=== PATIENT | female | born 1985 | race Caucasian/White ===

== ENCOUNTER 2016-10-26 17:03 | Outpatient (CLI) | payer OTHER | END 2016-10-26 17:55 | disposition home or self-care (01) | LOC: FBC 17:03 → FBCOUT 17:03 | PROVIDERS: ATTEND Family Medicine | DX: O26.899 Other specified pregnancy related conditions, unspecified trimester (principal); R11.0 Nausea; R42 Dizziness and giddiness; Z3A.00 Weeks of gestation of pregnancy not specified ==

== ENCOUNTER 2016-10-31 20:40 | Inpatient (IN) | payer OTHER ==
[2016-10-31 21:06] VITALS: BMI 30.9
[2016-10-31] MEDS ORDERED: OXYTOCIN IN LR 500 ML IV ONE (23:06)
[2016-10-31] MEDS ORDERED: OXYTOCIN 10 UNITS/ML VIAL ONE (23:08)
[2016-10-31] MEDS ORDERED: LIDOCAINE Viscous 2% 15 ML UDCUP ONE (23:08)
[2016-10-31] MEDS ORDERED: LIDOCAINE 1% (PRES FREE) 30 ML VIAL ONE (23:08)
[2016-10-31] MEDS ORDERED: PUMP TUBING ONE (23:08)
[2016-10-31] MEDS ORDERED: MINERAL OIL 25 ML BOT ONE (23:08)
[2016-10-31] MEDS ORDERED: IV START KIT ONE (23:09)
[2016-10-31] MEDS ORDERED: FENTANYL/ROPIVACAINE EPIDURAL 250 ML EP ONE (23:36)
[2016-10-31] MEDS ORDERED: EPIDURAL PUMP SET ONE (23:36)
[2016-10-31] MEDS: LACTATED RINGERS 1,000 ML IV PRN (23:38)
[2016-10-31 23:48] LABS: HEMATOCRIT 41.6 % (37.0-47.0); HEMOGLOBIN 13.9 gm/l (12.0-16.0); MEAN CELL VOLUME 90.6 fl (81.0-99.0); MEAN CORPUSCULAR HEMOGLOBIN 30.3 pg (27.0-31.0); MEAN CORPUSCULAR HGB CONC 33.4 g/dl (33.0-37.0); RED CELL DISTRIBUTION WIDTH 14.9 % (11.5-14.5)
[2016-11-01] MEDS ORDERED: EPIDURAL PROCEDURE TRAY ONE (00:10)
[2016-11-01] MEDS: LACTATED RINGERS 1,000 ML IV PRN (01:30)
[2016-11-01] MEDS ORDERED: FLU VACC 2016-17 (36MO-64Y)/PF 60 MCG/0.5 ML SYRINGE IM V ONE (02:20)
[2016-11-01] MEDS ORDERED: CALCIUM CARBONATE 500 MG TAB.CHEW PO PRN (02:21)
[2016-11-01] MEDS ORDERED: MAGNESIUM HYDROXIDE 30 ML UDCUP PO PRN (02:21)
[2016-11-01] MEDS ORDERED: ACETAMINOPHEN 325 MG TABLET PO PRN (02:21)
[2016-11-01] MEDS ORDERED: LANOLIN 50 APPLIC/7G TUBE TP PRN (02:21)
[2016-11-01] MEDS ORDERED: BENZOCAINE/MENTHOL 60 APPLIC/BOT TP PRN (02:21)
[2016-11-01] MEDS ORDERED: DOCUSATE SODIUM 100 MG CAPSULE PO PRN (02:21)
--- NOTE | 2016-11-01 02:35 | PCMDEL ---
Delivery Note - Labor 1st stage (hr/min):: 2h58m 2nd stage (hr/min):: 0h5m 3rd stage (hr/min):: 0h10m Total (hr/min):: 3h13m Pushed (hr/min):: 0h1m - Delivery Delivery (Date): 11/01/16 Delivery (Time): 01:34 Infant Gender: Male Presentation: Cephalic Position: OA Umbilical Cord: 3 Vessel Delayed Cord Clamping:: > 3 min 1 Minute Total: 9 5 Minute Total: 10 Placenta:: spontaneous, betancourt, intact, 3vc EBL:: 400ml Perineum:: Intact Anesthesia/Meds:: epidural Length ROM:: 5min Comments:: I was called to the room for stand-by, as patient was 9.5cm and had a hx of fast labors. Within in approx 15min, Martha SROM'd for clear fluid and pushed once to achieve of vigorous male over intact perineum. OA to STEPHANIE. placed skin to skin for bonding & drying. Apgars 9/10. AMTSL initiated. Cord clamped at >3min following cessation of pulse and cut by Martha's oldest son. Cord blood collected. Delivery of intact placenta, betancourt presentation, with 3vc. Fundus firm, midline, u/-1. Moderate void with fundal pressure. Perineum found to be intact, no sutures required. Hemostasis achieved. EBL 400ml. Mom and baby stable with baby to breast within 30min. Inez Gomez CNM.
[2016-11-01] MEDS ORDERED: DIPHENHYDRAMINE HCL 50 MG/1 ML VIAL IV PRN (03:00)
[2016-11-01] MEDS ORDERED: LACTATED RINGERS 1,000 ML IV SCH (03:00)
[2016-11-01] MEDS ORDERED: METOCLOPRAMIDE HCL 5 MG/ML 2ML VIAL IV PRN (03:00)
[2016-11-01] MEDS ORDERED: NALOXONE HCL 0.4 MG/ML VIAL IV PRN (03:00)
[2016-11-01] MEDS ORDERED: EPHEDRINE SULFATE 50 MG/ML 1ML VIAL IV PRN (03:00)
[2016-11-01] MEDS ORDERED: ONDANSETRON 4 MG/2ML 2 ML VIAL IV PRN (03:00)
[2016-11-01] MEDS ORDERED: FENTANYL/ROPIVACAINE EPIDURAL 250 ML EP SCH (03:00)
[2016-11-01] MEDS ORDERED: SODIUM CHLORIDE 0.9% 500 ML IV PRN (03:00)
[2016-11-01] MEDS ORDERED: LACTATED RINGERS 500 ML IV PRN (03:00)
[2016-11-01] MEDS ORDERED: NALBUPHINE HCL 20 MG/ML AMP IV PRN (03:00)
[2016-11-01] MEDS: IBUPROFEN 800 MG TABLET PO SCH ×4 (07:25→21:19)
--- NOTE | 2016-11-01 08:08 | PDOC44 ---
- Subjective Day: 0 Reports Pain Tolerable, Reports , Reports Lochia Moderate, Reports Tolerating Regular Diet, Denies Nausea, Denies Vomiting - Objective Temp Pulse Resp BP Pulse Ox 98 F 67 16 120/57 11/01/16 05:49 11/01/16 05:49 11/01/16 05:49 11/01/16 05:49 Lab Results 10/31/16 23:20 WBC 8.6 RBC 4.59 Hgb 13.9 Hct 41.6 Plt Count 162 10/31/16 23:20 RDW 14.9 H Current Medications Generic Name Dose Route Start Last Admin Trade Name Freq PRN Reason Stop Dose Admin Acetaminophen 325 mg 11/01/16 02:21 Tylenol PO Q4H PRN Pain (Mild) Acetaminophen/Hydrocodone Bitart 1 - 2 tab 11/01/16 02:21 [place] 5/325 PO Q4H PRN Pain (Moderate) Benzocaine/Menthol 1 applic 11/01/16 02:21 Dermoplast TP PRN PRN Patient Comfort Calcium Carbonate/Glycine 500 mg 11/01/16 02:21 Tums PO BID PRN Indigestion Docusate Sodium 100 mg 11/01/16 02:21 Colace PO DAILY PRN Comfort Emollient Ointment 1 applic 11/01/16 02:21 [id number] TP PRN PRN sore nipples Ibuprofen 800 mg 11/01/16 03:00 11/01/16 07:25 Motrin PO Not Given Q6H [facility] Magnesium Hydroxide 30 ml 11/01/16 02:21 Milk Of Magnesia PO BEDTIME PRN Constipation Sodium Chloride 10 ml 11/01/16 02:21 Normal Saline 10ml Flush IV PRN PRN IV Flush Sodium Chloride 10 ml 11/01/16 09:00 Normal Saline 10ml Flush IV Q8HR [facility] - Physical Exam General: Afebrile, No Acute Distress Psych/Mental Status: Mood/Affect Appropriate, Bonding Well Neurological: Alert, Oriented x 4 Lungs: Clear to Auscultation Bilaterally Cardiovascular: Regular Rate and Rhythm Breast: Nipples Intact Fundus: Firm, Midline Extremities: Full ROM, No Edema, No Tenderness Skin: Normal Color, Warm, Dry, Intact, No Rash Wound COMPLETIONS ENGINEER: Dressing Clean/Dry/Intact, Well Approximated - Problems:Assessment/Plan (1) care following vaginal delivery Status: AcuteAssessment/Plan: 1. Routine care. 2. Contraception: vasectomy 3. Feeding: 4. Disposition: Home 5. d/c on 11/02/16 likely
--- NOTE | 2016-11-01 12:02 | PCMAN ---
OB Admission Note - History : 3 Term: 2 : 0 Abortions (S&E): 0 Livin Gestational Age (weeks): 40 Days (#/7): 0 Admit Cervical Dilation:: 6.5 Admit Cervical Effacement (%):: 85 Admit Station:: -2 Admit Presentaton:: Vertex Membrane Status: Intact Labor Onset (Date): 10/31/16 Labor Onset (Time): 22:31 Contractions: Yes Contraction Frequency:: 2-3 - Labs Blood Type: O (+) positive Rubella Status: Immune GBS Status: Negative - Problems (1) Active labor at term Status: Acute Code: [id number]/Plan: Pt was checked and was 5/80/-2 and reporting ctxs increasing in strength and frequency. She was walked for an hour, changed her cervix by 1cm, and then was admitted for expectant management with intact membranes.
[2016-11-01] MEDS: HYDROCODONE/ACETAMINOPHEN 5/325MG TABLET PO PRN ×2 (15:47→21:19)
[2016-11-02] MEDS: HYDROCODONE/ACETAMINOPHEN 5/325MG TABLET PO PRN ×2 (01:28→06:05)
[2016-11-02] MEDS: IBUPROFEN 800 MG TABLET PO SCH (02:51)
[2016-11-02 06:15] LABS: HEMATOCRIT 37.4 % (37.0-47.0)
[2016-11-02 07:45] VITALS: BP 118/56
--- NOTE | 2016-11-02 07:58 | PDOC39B ---
Hospital Course: ADMIT DATE: 10/31/16 DISCHARGE DATE: 11/02/16 ADMISSION DIAGNOSES: Active labor PROCEDURES: , epidural HISTORY OF PRESENT ILLNESS: 31 year old G3 T2 L2 at 40 weeks 0 days presenting with active labor, intact membranes HOSPITAL COURSE: The patient delivered after approximately 5 hours of 1st stage labor. She delivered over intact perineum, uncomplicated term male . One of the midwives who was in house performed the delivery as Dr. Heath (OB provider throughout ) had a technilogical malfunction with his phone and was not able to arrive to the delivery in time. By day of discharge the patient is ambulating, eating, voiding, and passing flatus without difficulty. Pain is controlled and lochia is appropriate. She is . - Physical Exam Vital Signs: Temp Pulse Resp BP Pulse Ox 98.0 F 63 16 118/56 11/02/16 07:45 11/02/16 07:45 11/02/16 07:45 11/02/16 07:45 - Discharge Diagnosis (1) Active labor at term Status: AcuteAssessment/Plan: Pt was checked and was 5/80/-2 and reporting ctxs increasing in strength and frequency. She was walked for an hour, changed her cervix by 1cm, and then was admitted for expectant management with intact membranes. - Discharge Plan Instruction Forms: Vaginal Discharge Instructions Prescriptions: Docusate Sodium [COLACE 100 MG CAPSULE (SHF)] 100 mg PO BID PRN #30 cap PRN Reason: Constipation Ibuprofen [Motrin] 800 mg PO Q6H PRN #60 tablet PRN Reason: Pain Follow-Up: Raymon Heath MD [Primary Care Provider] - In 6 weeks
== END 2016-11-02 11:45 | disposition home or self-care (01) | DRG 775 ==
LOC: FBC 20:40 → FBCOUT 20:40 → FBC 23:05
PROVIDERS: ADMIT Family Medicine; ATTEND Family Medicine
PROC: 10E0XZZ Delivery of Products of Conception, External Approach (ICD-10-PCS; principal; 2016-11-01)
DX: O80 Encounter for full-term uncomplicated delivery (principal); Z3A.40 40 weeks gestation of pregnancy; Z37.0 Single live birth